=== PATIENT | male | born 1940 | race Caucasian/White ===

== ENCOUNTER 2016-12-24 10:52 | Inpatient (IN) | payer MEDICARE ==
[~2016-12-24] VITALS: Ht 182.9 cm; Wt 104.5 kg
[~2016-12-24 10:52] MED LIST: DIABETA 2.5MG2.5 MG PO; FLOMAX 0.40.4 MG/CAP PO; GLUCOPHAGE1000 MG PO; JANUVIA 100MG100 MG PO; LOPRESSOR 225 MG/TAB PO; LOPRESSOR100 MG PO; PERCOCET 325 MG1 TA2 PO; PHARMASSURE SA160 MG PO; PRINZIDE 25 MG-1 TAB PO; SEPTRA DS 8001 TAB PO; TORADOL10 MG PO; ZOFRAN 4MG T4 MG/TAB PO
[2016-12-24] MEDS ORDERED: FLOMAX 0.40.4 MG/CAP PO (16:00)
[2016-12-24] MEDS ORDERED: ASPIRIN 81M81 MG/TA2 PO (16:01)
[2016-12-24] MEDS ORDERED: LEVEMIR100 U/ML SQ (16:01)
[2016-12-24] MEDS ORDERED: FISH OIL 1000MG1 CAP PO (16:03)
[2016-12-24] MEDS ORDERED: CO Q-1010 M1 PO (16:03)
[2016-12-24] MEDS ORDERED: CHROMIUM PICO200 MC2 (16:03)
[2016-12-24 16:54] LABS: BASO % 0.2 % (0.0-2.0); GRAN # 11.5 (1.4-6.5); GRAN % 87.1 % (42.2-75.2); HEMATOCRIT 47.5 % (42.0-52.0); HEMOGLOBIN 16.3 g/dl (13.5-18.0); LYMPH % 7.3 % (20.0-51.0); MEAN CELL VOLUME 93 fl (80.0-100.0); MEAN CORPUSCULAR HEMOGLOBIN 32 pg (27.0-31.0); MEAN CORPUSCULAR HGB CONC 34 g/dl (33.0-37.0); MEAN PLATELET VOLUME 11.8 fl (7.4-10.4); MONO # 0.6 (0.1-0.6); MONO % 4.2 % (1.7-9.3); PLATELET COUNT 190 K/mm3 (130-400); REDCELL DISTRIBUTION WIDTH-CV 12.6 % (11.5-14.5); WHITE BLOOD COUNT 13.2 K/mm3 (4.8-10.8)
[2016-12-24 17:02] LABS: ADJUSTED CALCIUM 9.3 mg/dL (8.4-10.2); ALANINE AMINOTRANSFERASE 46 U/L (21-72); ALBUMIN 4.2 gm/dL (3.5-5.0); ALKALINE PHOSPHATASE 59 U/L (50-136); ANION GAP 14 mmol/L (7-16); BILIRUBIN,TOTAL 0.9 mg/dL (0.0-1.0); BLOOD UREA NITROGEN 42 mg/dL (9-20); CALCIUM 9.5 mg/dL (8.4-10.2); CARBON DIOXIDE 26 mmol/L (22-30); CHLORIDE 95 mmol/L (98-107); CREATININE, serum 1.08 mg/dL (0.66-1.25); GLUCOSE 237 mg/dL (74-106); POTASSIUM 4.4 mmol/L (3.4-5.0); SODIUM 135 mmol/L (137-145); TOTAL PROTEIN 7.5 gm/dL (6.4-8.2)
[2016-12-24 17:11] LABS: B-TYPE NATRIURETIC PEPTIDE 302 pg/mL (0-450)
[2016-12-24 17:32] VITALS: BP 131/86; PULSE 74; TEMP 98.3
[2016-12-24 17:37] LABS: TROPONIN-I < 0.012 ng/mL (0.000-0.034)
[2016-12-24 18:26] LABS: INFLUENZA B NEGATIVE
[2016-12-24 20:39] VITALS: BP 95/63; PULSE 95; TEMP 98.7
[2016-12-24 23:05] VITALS: BP 98/64; PULSE 92; TEMP 98.6
[2016-12-25] VITALS (11 sets, daily range): BP systolic 94–128; BP diastolic 61–83; PULSE 72–119; TEMP 97.3–973
[2016-12-25 09:25] LABS: HEMATOCRIT 45.3 % (42.0-52.0); HEMOGLOBIN 15.7 g/dl (13.5-18.0); MEAN CELL VOLUME 93 fl (80.0-100.0); MEAN CORPUSCULAR HEMOGLOBIN 32 pg (27.0-31.0); MEAN CORPUSCULAR HGB CONC 35 g/dl (33.0-37.0); MEAN PLATELET VOLUME 11.3 fl (7.4-10.4); PLATELET COUNT 174 K/mm3 (130-400); RED BLOOD COUNT 4.88 M/mm3 (4.20-5.60); REDCELL DISTRIBUTION WIDTH-CV 12.5 % (11.5-14.5); WHITE BLOOD COUNT 11.1 K/mm3 (4.8-10.8)
[2016-12-25 09:34] LABS: ADD PATHOLOGY DIFF REVIEW NO
[2016-12-25 10:06] LABS: INR 1.1 (0.8-3.0); PROTHROMBIN TIME 12.3 SECONDS (9.7-12.8)
[2016-12-25 15:05] LABS: BAND 5 % (0-10); NEUTROPHILS 74 % (42.0-75.2); PLATELET ESTIMATE NORMAL (NORMAL); TOTAL CELLS COUNTED 100
[2016-12-26 01:48] VITALS: BP 111/71; PULSE 79; TEMP 97.7
[2016-12-26 03:30] VITALS: BP 112/79; PULSE 73; TEMP 98.2
[2016-12-26 03:46] LABS: CREATININE, serum 1.06 mg/dL (0.66-1.25); MAGNESIUM 2.2 mg/dL (1.6-2.3); POTASSIUM 4.5 mmol/L (3.4-5.0)
[2016-12-26 08:24] VITALS: BP 106/69; PULSE 94; TEMP 97
[2016-12-26 12:22] VITALS: BP 104/55; PULSE 79; TEMP 98
[2016-12-26 15:50] VITALS: BP 106/60; PULSE 92; TEMP 97.4
[2016-12-26 21:15] VITALS: BP 112/65; PULSE 81; TEMP 98.2
[2016-12-27] VITALS (8 sets, daily range): BP systolic 92–116; BP diastolic 55–75; PULSE 63–109; TEMP 97.1–98.3
[2016-12-27 09:37] LABS: HEMATOCRIT 43.6 % (42.0-52.0); HEMOGLOBIN 14.8 g/dl (13.5-18.0); MEAN CELL VOLUME 94 fl (80.0-100.0); MEAN CORPUSCULAR HEMOGLOBIN 32 pg (27.0-31.0); MEAN CORPUSCULAR HGB CONC 34 g/dl (33.0-37.0); MEAN PLATELET VOLUME 11.2 fl (7.4-10.4); PLATELET COUNT 178 K/mm3 (130-400); RED BLOOD COUNT 4.66 M/mm3 (4.20-5.60); REDCELL DISTRIBUTION WIDTH-CV 12.6 % (11.5-14.5); WHITE BLOOD COUNT 14.3 K/mm3 (4.8-10.8)
[2016-12-27 09:39] LABS: ADD PATHOLOGY DIFF REVIEW NO
[2016-12-27 10:51] LABS: BAND 3 % (0-10); NEUTROPHILS 79 % (42.0-75.2); TOTAL CELLS COUNTED 100
[2016-12-28 04:24] VITALS: BP 111/69; PULSE 87; TEMP 98
[2016-12-28 07:42] VITALS: BP 120/79; PULSE 76; TEMP 97.3
[2016-12-28 09:27] LABS: HEMATOCRIT 43.9 % (42.0-52.0); HEMOGLOBIN 14.8 g/dl (13.5-18.0); MEAN CELL VOLUME 94 fl (80.0-100.0); MEAN CORPUSCULAR HEMOGLOBIN 32 pg (27.0-31.0); MEAN CORPUSCULAR HGB CONC 34 g/dl (33.0-37.0); PLATELET COUNT 180 K/mm3 (130-400); RED BLOOD COUNT 4.65 M/mm3 (4.20-5.60); REDCELL DISTRIBUTION WIDTH-CV 12.4 % (11.5-14.5); WHITE BLOOD COUNT 10.8 K/mm3 (4.8-10.8)
[2016-12-28] MEDS ORDERED: PREDNISONE20 MG PO (09:27)
[2016-12-28 09:32] LABS: ADD PATHOLOGY DIFF REVIEW NO
[2016-12-28 09:52] LABS: BAND 3 % (0-10); NEUTROPHILS 54 % (42.0-75.2); PLATELET ESTIMATE NORMAL (NORMAL); TOTAL CELLS COUNTED 100
[2016-12-28 11:42] VITALS: BP 115/67; PULSE 72; TEMP 97.3
[2016-12-28] MEDS ORDERED: LEVAQUIN 750MG750 M1 PO (14:43)
[2016-12-28] MEDS ORDERED: PROAIR HFA0.09 MG/AC IH (14:45)
== END 2016-12-28 15:39 | disposition home or self-care (01) | DRG 193 ==
LOC: SURG 10:52 → MEDICAL 15:27
PROVIDERS: Internal Medicine; Internal Medicine Pulmonary Disease; Nurse Practitioner Family
PROC: 0B958ZX Drainage of Right Middle Lobe Bronchus, Via Natural or Artificial Opening Endoscopic, Diagnostic (ICD-10-PCS; 2016-12-25)
PROC: 0B968ZX Drainage of Right Lower Lobe Bronchus, Via Natural or Artificial Opening Endoscopic, Diagnostic (ICD-10-PCS; 2016-12-25)
PROC: 0B988ZX Drainage of Left Upper Lobe Bronchus, Via Natural or Artificial Opening Endoscopic, Diagnostic (ICD-10-PCS; 2016-12-25)
PROC: 0B9B8ZX Drainage of Left Lower Lobe Bronchus, Via Natural or Artificial Opening Endoscopic, Diagnostic (ICD-10-PCS; 2016-12-25)
PROC: 0B948ZX Drainage of Right Upper Lobe Bronchus, Via Natural or Artificial Opening Endoscopic, Diagnostic (ICD-10-PCS; principal; 2016-12-25 12:15)
DX: J12.3 Human metapneumovirus pneumonia (principal); J96.01 Acute respiratory failure with hypoxia; J15.9 Unspecified bacterial pneumonia; I10 Essential (primary) hypertension; E11.42 Type 2 diabetes mellitus with diabetic polyneuropathy
CPT/HCPCS: 99222-AI; 99232-AI; 99239; J1815; J1956; J2704; J7030; J7120; J7512

== ENCOUNTER → 2017-01-01 | Outpatient (REF) ==
[~2017-01-01] MED LIST changes: +ASPIRIN 81M81 MG/TA2 PO; +CARDENE 20MG CA20 M1 PO; +CHROMIUM PICO200 MC2; +CO Q-1010 M1 PO; +FISH OIL 1000MG1 CAP PO; +LANTUS100 U/ML SQ; +LEVAQUIN 750MG750 M1 PO; +LEVEMIR100 U/ML SQ; +LIPITOR 80MG80 MG PO; +PLAVIX 75MG TAB75 MG PO; +PREDNISONE20 MG PO; +PROAIR HFA0.09 MG/AC IH; +TOPROL XL 25MG25 MG PO
== END ==
LOC: ZLAB.WCH 15:14
DX: Z01.89 Encounter for other specified special examinations (principal)

== ENCOUNTER → 2017-01-28 | Outpatient (CLI) | payer MEDICARE | LOC: COL.PUL 11:20 | DX: G47.34 Idiopathic sleep related nonobstructive alveolar hypoventilation (principal) ==

== ENCOUNTER 2017-03-01 12:02 | Day surgery (SDC) | payer MEDICARE ==
[~2017-03-01] VITALS: Ht 182.9 cm; Wt 108.0 kg
[2017-03-01] VITALS (434 sets, daily range): BP systolic 100–135; BP diastolic 51–108; PULSE 54–73; TEMP 97.6–98; O2SAT 89–97
[~2017-03-01 12:02] MED LIST changes: -CARDENE 20MG CA20 M1 PO; -LANTUS100 U/ML SQ; -LIPITOR 80MG80 MG PO; -PLAVIX 75MG TAB75 MG PO; -TOPROL XL 25MG25 MG PO
[2017-03-01 13:01] LABS: INR 1.1 (0.8-3.0); PROTHROMBIN TIME 11.8 SECONDS (9.7-12.8)
[2017-03-01 13:11] LABS: HEMATOCRIT 43.5 % (42.0-52.0); HEMOGLOBIN 14.9 g/dl (13.5-18.0); MEAN CELL VOLUME 95 fl (80.0-100.0); MEAN CORPUSCULAR HEMOGLOBIN 32 pg (27.0-31.0); MEAN CORPUSCULAR HGB CONC 34 g/dl (33.0-37.0); MEAN PLATELET VOLUME 10.8 fl (7.4-10.4); PLATELET COUNT 183 K/mm3 (130-400); REDCELL DISTRIBUTION WIDTH-CV 12.7 % (11.5-14.5)
[2017-03-01] MEDS ORDERED: PROAIR HFA0.09 MG/AC IH (13:19)
[2017-03-01] MEDS ORDERED: LANTUS100 U/ML SQ (13:21)
[2017-03-01 13:22] LABS: CREATININE, serum 0.86 mg/dL (0.66-1.25); POTASSIUM 4.3 mmol/L (3.4-5.0)
[2017-03-01] MEDS ORDERED: TOPROL XL 25MG25 MG PO (13:25)
[2017-03-01] MEDS ORDERED: PLAVIX 75MG TAB75 MG PO (13:26)
[2017-03-02] VITALS (481 sets, daily range): BP systolic 93–123; BP diastolic 47–85; PULSE 60–87; TEMP 97.6–98.1; O2SAT 89–97
[2017-03-02 07:00] LABS: BASO # 0.1 (0.0-0.2); BASO % 1.3 % (0.0-2.0); EOS # 0.3 (0.0-0.7); EOS % 3.9 % (0-4.0); GRAN # 4.1 (1.4-6.5); GRAN % 65.3 % (42.2-75.2); HEMOGLOBIN 14.7 g/dl (13.5-18.0); LYMPH # 1.1 (1.2-3.4); LYMPH % 17.5 % (20.0-51.0); MEAN CELL VOLUME 95 fl (80.0-100.0); MEAN CORPUSCULAR HEMOGLOBIN 32 pg (27.0-31.0); MEAN CORPUSCULAR HGB CONC 33 g/dl (33.0-37.0); MEAN PLATELET VOLUME 11.2 fl (7.4-10.4); MONO # 0.7 (0.1-0.6); MONO % 10.3 % (1.7-9.3); PLATELET COUNT 183 K/mm3 (130-400); RED BLOOD COUNT 4.64 M/mm3 (4.20-5.60); REDCELL DISTRIBUTION WIDTH-CV 12.9 % (11.5-14.5); WHITE BLOOD COUNT 6.3 K/mm3 (4.8-10.8)
[2017-03-02 07:07] LABS: CALCIUM 8.7 mg/dL (8.4-10.2); CREATININE, serum 0.93 mg/dL (0.66-1.25)
[2017-03-02 12:46] LABS: ADD PATHOLOGY DIFF REVIEW NO
[2017-03-02 12:50] LABS: BAND 13 % (0-10); EOSINOPHIL 2 % (0-4); NEUTROPHILS 64 % (42.0-75.2); PLATELET ESTIMATE NORMAL (NORMAL); TOTAL CELLS COUNTED 100
[2017-03-02] MEDS ORDERED: CARDENE 20MG CA20 M1 PO (15:04)
== END 2017-03-02 15:35 | disposition home or self-care (01) ==
LOC: COL.RAD 12:02 → IMCU 14:49 → COL.RAD 03-02 15:35
PROVIDERS: Internal Medicine Interventional Cardiology
DX: I25.10 Atherosclerotic heart disease of native coronary artery without angina pectoris (principal); R07.89 Other chest pain; R94.39 Abnormal result of other cardiovascular function study; R00.1 Bradycardia, unspecified; J84.10 Pulmonary fibrosis, unspecified; E11.9 Type 2 diabetes mellitus without complications; Z79.4 Long term (current) use of insulin; I10 Essential (primary) hypertension; E78.00 Pure hypercholesterolemia, unspecified
CPT/HCPCS: OP; C1725; C1760; C1769; C1876; J0583; J1815; J2250; J3010; Q9967

== ENCOUNTER 2017-04-18 16:17 | Inpatient (IN) | payer MEDICARE ==
[~2017-04-18] VITALS: Wt 104.7 kg
[~2017-04-18 16:17] MED LIST changes: +CARDENE 20MG CA20 M1 PO; +LANTUS100 U/ML SQ; +PLAVIX 75MG TAB75 MG PO; +TOPROL XL 25MG25 MG PO
[2017-04-18 16:39] LABS: BASO # 0.1 (0.0-0.2); EOS % 0.5 % (0-4.0); GRAN % 81.4 % (42.2-75.2); HEMATOCRIT 42.5 % (42.0-52.0); HEMOGLOBIN 14.5 g/dl (13.5-18.0); LYMPH # 0.9 (1.2-3.4); LYMPH % 12.3 % (20.0-51.0); MEAN CELL VOLUME 93 fl (80.0-100.0); MEAN CORPUSCULAR HEMOGLOBIN 32 pg (27.0-31.0); MEAN CORPUSCULAR HGB CONC 34 g/dl (33.0-37.0); MEAN PLATELET VOLUME 12.3 fl (7.4-10.4); MONO # 0.3 (0.1-0.6); MONO % 3.8 % (1.7-9.3); PLATELET COUNT 163 K/mm3 (130-400); RED BLOOD COUNT 4.56 M/mm3 (4.20-5.60); REDCELL DISTRIBUTION WIDTH-CV 12.7 % (11.5-14.5); WHITE BLOOD COUNT 7.3 K/mm3 (4.8-10.8)
[2017-04-18 17:06] LABS: INR 1.1 (0.8-3.0); PROTHROMBIN TIME 12.4 SECONDS (9.7-12.8)
[2017-04-18 17:14] LABS: ALANINE AMINOTRANSFERASE 34 U/L (21-72); ALBUMIN 3.9 gm/dL (3.5-5.0); ALKALINE PHOSPHATASE 47 U/L (50-136); ANION GAP 11 mmol/L (7-16); BLOOD UREA NITROGEN 23 mg/dL (9-20); CALCIUM 8.9 mg/dL (8.4-10.2); CARBON DIOXIDE 24 mmol/L (22-30); CHLORIDE 101 mmol/L (98-107); CREATININE, serum 1.03 mg/dL (0.66-1.25); GLUCOSE 173 mg/dL (74-106); MAGNESIUM 1.6 mg/dL (1.6-2.3); PHOSPHOROUS 4.5 mg/dL (2.5-4.5); POTASSIUM 4.4 mmol/L (3.4-5.0); SODIUM 137 mmol/L (137-145); TOTAL PROTEIN 6.5 gm/dL (6.4-8.2)
[2017-04-18 17:24] LABS: B-TYPE NATRIURETIC PEPTIDE 331 pg/mL (0-450); TROPONIN-I < 0.012 ng/mL (0.000-0.034)
[2017-04-18] MEDS ORDERED: LIPITOR 80MG80 MG PO (18:38)
[2017-04-18 21:13] VITALS: BP 130/75; PULSE 87; TEMP 98.7
[2017-04-18 23:01] VITALS: BP 116/72; PULSE 68; TEMP 97.4
[2017-04-19 02:46] VITALS: BP 133/83; PULSE 58; TEMP 98.7
[2017-04-19 08:29] VITALS: BP 104/60; PULSE 51; TEMP 98.4
[2017-04-19 11:39] VITALS: BP 110/68; PULSE 62; TEMP 98.1
[2017-04-19 16:04] LABS: PH 6 (5-8); SQUAMOUS EPITHELIAL None Seen /hpf; URINE APPEARANCE Clear; URINE BACTERIA None Seen /hpf; URINE BILIRUBIN Negative (NEGATIVE); URINE BLOOD Negative (NEGATIVE); URINE COLOR Yellow; URINE GLUCOSE Negative (NEGATIVE); URINE KETONE Negative (NEGATIVE); URINE UROBILINOGEN Negative (NEGATIVE); URINE WBC 0-2 /hpf
[2017-04-19 16:20] VITALS: BP 101/63; PULSE 56; TEMP 98.1
[2017-04-19 19:20] VITALS: BP 134/61; PULSE 70; TEMP 98.6
[2017-04-19 23:15] VITALS: BP 110/72; PULSE 96; TEMP 98.5
[2017-04-20 03:10] VITALS: BP 117/62; PULSE 55; TEMP 97.8
[2017-04-20 08:18] VITALS: BP 105/67; PULSE 55; TEMP 98.2
[2017-04-20] MEDS ORDERED: CARDENE 20MG CA20 M1 PO (10:19)
[2017-04-20 11:30] VITALS: BP 85/56; PULSE 58; TEMP 98.3
[2017-04-20 11:54] VITALS: BP 96/48
== END 2017-04-20 15:00 | disposition home or self-care (01) | DRG 312 ==
LOC: COL.ER 16:17 → MEDICAL 18:23
PROVIDERS: Emergency Medicine; Family Medicine
DX: R55 Syncope and collapse (principal); I95.9 Hypotension, unspecified; I10 Essential (primary) hypertension; I25.10 Atherosclerotic heart disease of native coronary artery without angina pectoris; E11.42 Type 2 diabetes mellitus with diabetic polyneuropathy; Z95.5 Presence of coronary angioplasty implant and graft; Z79.4 Long term (current) use of insulin; Z86.73 Personal history of transient ischemic attack (TIA), and cerebral infarction without residual deficits; G47.33 Obstructive sleep apnea (adult) (pediatric); M50.31 Other cervical disc degeneration, high cervical region
CPT/HCPCS: 99223-AI; 99232-AI; 99239; A9585; J1650; J1815; J7030

== ENCOUNTER → 2017-06-16 | Outpatient (REF) ==
[~2017-06-16] MED LIST changes: +LIPITOR 80MG80 MG PO
== END ==
LOC: ZLAB.WCH 19:08
DX: Z01.89 Encounter for other specified special examinations (principal)

== ENCOUNTER → 2017-11-22 | Outpatient (REF) | LOC: ZLAB.WCH 18:33 | DX: Z01.89 Encounter for other specified special examinations (principal) ==

== ENCOUNTER → 2018-02-25 | Outpatient (REF) | LOC: ZLAB.WCH 15:48 | DX: Z01.89 Encounter for other specified special examinations (principal) ==

== ENCOUNTER → 2018-06-20 | Outpatient (REF) | LOC: ZLAB.WCH 16:09 | DX: Z01.89 Encounter for other specified special examinations (principal) ==

== ENCOUNTER → 2018-10-21 | Outpatient (REF) | LOC: ZLAB.WCH 14:20 | DX: Z01.89 Encounter for other specified special examinations (principal) ==

== ENCOUNTER → 2019-02-01 | Outpatient (REF) | LOC: ZLAB.WCH 17:33 | DX: Z01.89 Encounter for other specified special examinations (principal) ==

== ENCOUNTER → 2019-03-13 | Outpatient (CLI) | payer MEDICARE ==
[2019-03-13 10:43] LABS: CREATININE, serum 0.87 (0.66-1.25)
== END ==
LOC: COL.RAD 10:04
PROVIDERS: Family Medicine
DX: E11.40 Type 2 diabetes mellitus with diabetic neuropathy, unspecified (principal); I73.9 Peripheral vascular disease, unspecified; I25.84 Coronary atherosclerosis due to calcified coronary lesion; Z86.69 Personal history of other diseases of the nervous system and sense organs; Z96.653 Presence of artificial knee joint, bilateral
CPT/HCPCS: Q9967

== ENCOUNTER 2019-11-17 16:33 | Emergency (ER) | payer MEDICARE ==
[~2019-11-17] VITALS: Ht 182.9 cm; Wt 97.7 kg
[2019-11-17 16:46] VITALS: TEMP 96.7
[2019-11-17] MEDS ORDERED: CEPHALEXIN500 M1 PO (18:12)
[2019-11-17 18:34] VITALS: BP 127/79; PULSE 56
== END 2019-11-17 18:36 | disposition home or self-care (01) ==
LOC: COL.ER 16:33
DX: R04.0 Epistaxis (principal); Z79.01 Long term (current) use of anticoagulants; Z79.02 Long term (current) use of antithrombotics/antiplatelets; Z79.82 Long term (current) use of aspirin; Z79.84 Long term (current) use of oral hypoglycemic drugs

== ENCOUNTER 2020-07-11 12:33 | Day surgery (SDC) | payer MEDICARE ==
[2020-07-11] VITALS (9 sets, daily range): BP systolic 100–124; BP diastolic 65–92; PULSE 16–69; TEMP 97.6
[~2020-07-11] VITALS: Ht 182.9 cm; Wt 101.3 kg
[~2020-07-11 12:33] MED LIST changes: +CEPHALEXIN500 M1 PO
[2020-07-11 13:40] LABS: HEMATOCRIT 42.5 % (42.0-52.0); HEMOGLOBIN 14.2 g/dl (13.5-18.0); MEAN CELL VOLUME 94 fl (80.0-100.0); MEAN CORPUSCULAR HEMOGLOBIN 32 pg (27.0-31.0); MEAN CORPUSCULAR HGB CONC 33 g/dl (33.0-37.0); PLATELET COUNT 168 K/mm3 (130-400); REDCELL DISTRIBUTION WIDTH-CV 13.4 % (11.5-14.5)
[2020-07-11 13:45] LABS: INR 1.3 (0.8-3.0); PROTHROMBIN TIME 14.3 SECONDS (9.7-12.8)
[2020-07-11 13:47] LABS: CALCIUM 9.1 mg/dL (8.4-10.2); CREATININE, serum 0.91 (0.66-1.25); POTASSIUM 4.2 mmol/L (3.4-5.0)
[2020-07-11] MEDS ORDERED: TOPROL XL 50MG50 MG PO (13:55)
[2020-07-11] MEDS ORDERED: ZESTRIL 5MG5 MG PO (13:56)
[2020-07-11] MEDS ORDERED: NEURONTIN300 MG/CAP PO (13:56)
[2020-07-11] MEDS ORDERED: IMDUR 30MG30 MG/TAB PO (13:56)
[2020-07-11] MEDS ORDERED: TRULICITY0.75 MG/0. SQ (14:12)
[2020-07-11] MEDS ORDERED: METAMUCIL MUL0.52 GM PO (14:13)
--- NOTE | 2020-07-11 15:07 | NUR ---
SEE MERGE FOR ALL MEDICATION ADMINISTRATION TIMES, INTRA AND POST SEDATION ASSESSMENT
--- NOTE | 2020-07-11 18:20 | NUR ---
Right Tband deflated and pressure dressing applied. INT discontinued intact.
--- NOTE | 2020-07-11 18:47 | NUR ---
Discharge instructions given.
--- NOTE | 2020-07-11 19:20 | NUR ---
Pt has waited over an hour for discharge paperwork from Dr. Rodrigez. Pt is not happy and wants to go home. Transferred to private car by
== END 2020-07-11 19:40 | disposition home or self-care (01) ==
LOC: COL.CAR
PROVIDERS: Internal Medicine Interventional Cardiology
DX: I25.10 Atherosclerotic heart disease of native coronary artery without angina pectoris (principal); I48.0 Paroxysmal atrial fibrillation; I11.0 Hypertensive heart disease with heart failure; I50.32 Chronic diastolic (congestive) heart failure; E11.9 Type 2 diabetes mellitus without complications; E78.00 Pure hypercholesterolemia, unspecified; Z79.82 Long term (current) use of aspirin; Z79.4 Long term (current) use of insulin; Z79.01 Long term (current) use of anticoagulants; Z79.02 Long term (current) use of antithrombotics/antiplatelets
CPT/HCPCS: J1644; J2250; J3010

== ENCOUNTER → 2021-05-30 | Outpatient (CLI) | payer MEDICARE ==
[~2021-05-30] MED LIST changes: +ALBUTEROL0.83 MG/ML IH; +COUMADIN 5MG5 MG/TAB PO; +IMDUR 30MG30 MG/TAB PO; +METAMUCIL MUL0.52 GM PO; +NEURONTIN300 MG/CAP PO; +OMNICEF 300MG300 MG PO; +TOPROL XL 50MG50 MG PO; +TRULICITY0.75 MG/0. SQ; +ZESTRIL 5MG5 MG PO
== END ==
LOC: COL.RAD 09:55
DX: K80.80 Other cholelithiasis without obstruction (principal); K82.8 Other specified diseases of gallbladder
CPT/HCPCS: A9537

== ENCOUNTER 2021-06-13 07:56 | Day surgery (SDC) | payer MEDICARE ==
[2021-06-13] VITALS (8 sets, daily range): BP systolic 95–111; BP diastolic 60–75; PULSE 54–66; TEMP 96.9–97.8
[~2021-06-13] VITALS: Ht 182.9 cm; Wt 103.3 kg
[~2021-06-13 07:56] MED LIST changes: -ALBUTEROL0.83 MG/ML IH; -COUMADIN 5MG5 MG/TAB PO; -OMNICEF 300MG300 MG PO
[2021-06-13] MEDS ORDERED: ALBUTEROL0.83 MG/ML IH (08:44)
[2021-06-13] MEDS ORDERED: OMNICEF 300MG300 MG PO (08:45)
[2021-06-13] MEDS ORDERED: CARDENE 20MG CA20 M1 PO (08:45)
[2021-06-13] MEDS ORDERED: COUMADIN 5MG5 MG/TAB PO (08:46)
--- NOTE | 2021-06-13 10:50 | NUR ---
Patient arrives to [facility] [place] [facility] for post-op recovery. Monitoring is applied - VSS on 2 L oxygen per nasal cannula. He is alert and oriented. PIV to TKO. He is offered and receives water to drink. Cardiology consult was called by Dr. Burleson; Dr. Rodrigez to come see patient. He denies pain or nausea. Call light is within reach.
--- NOTE | 2021-06-13 11:15 | NUR ---
Patient is resting comfortably. He is drinking water and eating jello. Tolerating well.
--- NOTE | 2021-06-13 11:15 | NUR ---
DEV Pollack with Dr. Rodrigez comes to see the patient at the bedside. While reviewing his chart, the patient's pulse rate is ranging from 30-65 on the bedside monitor. He is placed on a 3 lead heart monitor for more accurate assessment. He is in a-fib with PVCs, rate predominately in the 50s on ECG monitoring. DEV Pollack assesses the patient and his monitors, and does not give any further orders. The patient remains alert. He denies needs. Cardiology will return to re-assess and give approval for patient discharge.
--- NOTE | 2021-06-13 12:00 | NUR ---
Patient ambulates to the restroom, voids, and returns to room. Urine is bloody. He voids a large amount. VSS on room air. Heart rhythm remains a-fib rate 50s.
--- NOTE | 2021-06-13 12:30 | NUR ---
Cardiology CIRCUIT BOARD INSPECTOR gives order that patient is OK to discharge to home.
--- NOTE | 2021-06-13 12:45 | NUR ---
Patient ambulates with steady gait to the restroom, voids, and returns to room.
--- NOTE | 2021-06-13 13:05 | NUR ---
Patient has met discharge criteria. Discharge instructions are discussed. He denies any questions and verbalizes understanding. He is to follow-up with cardiology as scheduled for next week. Urology will call for follow-up appointment. Instructions are also given to his daughter. PIV is removed with catheter intact and hemostasis achieved. He changes to his clothing independently. He is escorted to the exit via wheelchair by staff. He is discharged to the care of his daughter, who drives him home in a private vehicle, at 1305.
== END 2021-06-13 13:05 | disposition home or self-care (01) ==
LOC: SDCO 07:56
DX: N20.2 Calculus of kidney with calculus of ureter (principal); I48.91 Unspecified atrial fibrillation; I11.0 Hypertensive heart disease with heart failure; I50.9 Heart failure, unspecified; I08.1 Rheumatic disorders of both mitral and tricuspid valves; G47.33 Obstructive sleep apnea (adult) (pediatric); E11.42 Type 2 diabetes mellitus with diabetic polyneuropathy; J40 Bronchitis, not specified as acute or chronic; Z79.4 Long term (current) use of insulin; Z20.822 Contact with and (suspected) exposure to COVID-19; Z79.899 Other long term (current) drug therapy; Z79.82 Long term (current) use of aspirin; Z86.73 Personal history of transient ischemic attack (TIA), and cerebral infarction without residual deficits; Z79.02 Long term (current) use of antithrombotics/antiplatelets; Z79.01 Long term (current) use of anticoagulants; Z95.828 Presence of other vascular implants and grafts; I25.10 Atherosclerotic heart disease of native coronary artery without angina pectoris; E11.40 Type 2 diabetes mellitus with diabetic neuropathy, unspecified; Z95.818 Presence of other cardiac implants and grafts
CPT/HCPCS: C1769; C2617; J0690; J2405; J2704; J3010; J7030; Q9967

== ENCOUNTER → 2021-08-27 | Outpatient (CLI) | payer MEDICARE ==
[~2021-08-27] MED LIST changes: +ALBUTEROL0.83 MG/ML IH; +COUMADIN 5MG5 MG/TAB PO; +OMNICEF 300MG300 MG PO
[2021-08-27 17:32] LABS: C-REACTIVE PROTEIN < 0.02 mg/dL (0.00-0.50)
[2021-08-27 17:38] LABS: TROPONIN-I < 0.010 ng/mL (0.00-0.033)
== END ==
LOC: ZCOL.LAB 17:02
PROVIDERS: Nurse Practitioner
DX: I95.9 Hypotension, unspecified (principal)

== ENCOUNTER 2022-01-24 00:13 | Emergency (ER) | payer MEDICARE ==
[~2022-01-24] VITALS: Ht 182.9 cm; Wt 100.0 kg
[2022-01-24 00:18] VITALS: TEMP 98.5
[2022-01-24 00:49] LABS: COLLECTION METHOD CATHETER
[2022-01-24 00:59] LABS: PH 6 (5-8); SQUAMOUS EPITHELIAL None Seen /hpf (0-10); URINE APPEARANCE Hazy (CLEAR/HAZY); URINE BACTERIA None Seen /hpf (NONE SEEN); URINE BILIRUBIN Negative (NEGATIVE); URINE BLOOD 2+ (NEGATIVE); URINE CALCIUM OXALATE CRYSTAL Present (NOT PRESENT); URINE COLOR Amber (YELLOW); URINE GLUCOSE 1+ (NEGATIVE); URINE KETONE Negative (NEGATIVE); URINE LEUKOCYTE ESTERASE Negative (NEGATIVE); URINE NITRATE Negative (NEGATIVE); URINE PROTEIN(semi-quant) 2+ (NEGATIVE); URINE RBC >50 /hpf (0-2); URINE UROBILINOGEN Negative (NEGATIVE)
[2022-01-24 01:08] LABS: INR 1.2 (0.8-3.0); PROTHROMBIN TIME 13.7 SECONDS (9.7-12.8)
[2022-01-24 01:29] VITALS: BP 107/76; PULSE 89
[2022-01-24] MEDS ORDERED: ISOPTIN SR120 MG PO (10:13)
[2022-01-24] MEDS ORDERED: PYRIDIUM 100MG100 MG PO (10:13)
[2022-01-24] MEDS ORDERED: COUMADIN 77.5 MG/TAB PO (10:14)
[2022-01-25] MEDS ORDERED: GLUCOPHAGE500 MG/TAB PO (09:18)
== END 2022-01-24 01:29 | disposition home or self-care (01) ==
LOC: COL.ER 00:13
PROVIDERS: Emergency Medicine
DX: R33.9 Retention of urine, unspecified (principal); R31.9 Hematuria, unspecified; R10.30 Lower abdominal pain, unspecified

== ENCOUNTER 2023-01-25 13:57 | Inpatient (IN) | payer MEDICARE ==
[~2023-01-25] VITALS: Ht 365.8 cm; Wt 102.0 kg
[~2023-01-25 13:57] MED LIST changes: +COUMADIN 77.5 MG/TAB PO; +ENTRESTO 97 MG1 EACH PO; +FARXIGA10 PO; +GLUCOPHAGE500 MG/TAB PO; +ISOPTIN SR120 MG PO; +PYRIDIUM 100MG100 MG PO
[2023-01-26 09:58] VITALS: BP 92/63; PULSE 78; TEMP 97.7
--- NOTE | 2023-01-26 10:15 | NUR ---
PT IS A DIRECT ADMIT TO [facility] FOR TIKOSYN INITIATION. PT ORIENTED TO ROOM AND FLOOR. TELE PLACED. KOFI MÉNDEZ NOTIFIED OF ARRIVAL. RT CALLED FOR EKG.
[2023-01-26] MEDS ORDERED: PACERONE200 MG PO (10:23)
[2023-01-26] MEDS ORDERED: IMDUR 60MG60 MG/TAB PO (10:23)
[2023-01-26] MEDS ORDERED: CARDENE 20MG CA20 M1 PO (10:24)
[2023-01-26] MEDS ORDERED: COUMADIN 5MG5 MG/TAB PO (10:24)
[2023-01-26] MEDS ORDERED: ALDACTONE 25MG25 M1 PO (10:24)
[2023-01-26 10:53] LABS: CALCIUM 8.6 mg/dL (8.4-10.2); CREATININE, serum 1.35 mg/dL (0.72-1.25); POTASSIUM 4.6 mmol/L (3.5-4.5)
[2023-01-26 11:10] LABS: MAGNESIUM 1.8 mg/dL (1.6-2.6)
[2023-01-26 12:40] VITALS: BP 102/69; PULSE 72; TEMP 97.8
--- NOTE | 2023-01-26 14:04 | NUR ---
RN CALLED ABOUT QTC OF 501.
--- NOTE | 2023-01-26 14:07 | NUR ---
Post tikosyn ekg completed. EKG reading states ST depression and qtc of 501. Landen MÉNDEZ notified and pics sent. Awaiting orders.
--- NOTE | 2023-01-26 14:42 | NUR ---
PACEMAKER INTERROGATED PER KOFI MÉNDEZ REQUEST. REPORT PLACED ON CHART. DAVID WITH [employer] CALLED AND NOTIFIED AND ASKED TO CALL KOFI MÉNDEZ WITH REPORT.
[2023-01-26 15:56] VITALS: BP 95/65; PULSE 71; TEMP 98
[2023-01-26 19:27] VITALS: BP 107/75; PULSE 74; TEMP 97.8
--- NOTE | 2023-01-26 20:55 | NUR ---
Initial shift assessment done- denies pain, Up in room on own- gait steady, denies CP or SOB/palpitations- Tele on-paced. Will get his Tokosyn now with EKG again at 2300 tonight-- Pt aware. Did give snack at this time.
[2023-01-26 23:26] VITALS: BP 105/66; PULSE 70; TEMP 98
[2023-01-27] VITALS (8 sets, daily range): BP systolic 85–109; BP diastolic 53–67; PULSE 54–74; TEMP 97.1–98
--- NOTE | 2023-01-27 05:25 | NUR ---
Quiet night- no CP/SOB, has been sleeping most of the night- Tele on,A paced. VSS.
--- NOTE | 2023-01-27 06:45 | NUR ---
awake resting in bed, bedside shift repeort received from LORI Weiner
[2023-01-27 06:50] LABS: CALCIUM 8.4 mg/dL (8.4-10.2); CREATININE, serum 1.2 mg/dL (0.72-1.25); MAGNESIUM 1.7 mg/dL (1.6-2.6); POTASSIUM 4.7 mmol/L (3.5-4.5)
--- NOTE | 2023-01-27 08:15 | NUR ---
had breakfast and tolerated well, full assessment completed, see interventions for further info, denies needs at this time
--- NOTE | 2023-01-27 09:34 | NUR ---
Initial visit; Patient thanked Pathology Teacher for looking in on him and offering prayer and God's blessings. Pathology Teacher will follow up while patient is hospitalized.
--- NOTE | 2023-01-27 10:00 | NUR ---
physical therapy was in and worked with patient, sitting up in recliner at this time, denies needs
--- NOTE | 2023-01-27 11:29 | NUR ---
remains sitting up in chair, dozing at intervals
--- NOTE | 2023-01-27 12:30 | NUR ---
remains sitting up in chair, eyes closed
--- NOTE | 2023-01-27 13:31 | NUR ---
bedside shift report given to LORI Bird
--- NOTE | 2023-01-27 14:20 | NUR ---
Report received from LORI Chaudhari. Pt sitting up in the recliner. Denies pain/discomfort, chest pain, shortness of breath. Denies other needs. Call light is in his reach.
--- NOTE | 2023-01-27 14:48 | NUR ---
SW met with the patient to discuss discharge plan. The patient lives alone in [place]. He reports independence with ADLs and has a cane and walker available, if needed. The patient's PCP is Dr. Pavel Servin and he receives his medications from [facility]. The patient's DPOA-HC is in EMR and it designates his daughter, Joyce (ph#[phone]). Joyce lives in [place]. The patient plans to return home upon discharge. No additional needs at this time. *Discharge plan: home*
[2023-01-28 03:36] VITALS: BP 96/65; PULSE 69; TEMP 98.6
[2023-01-28 07:13] LABS: INR 2.8 (0.8-3.0); PROTHROMBIN TIME 32.2 SECONDS (9.7-12.8)
[2023-01-28 07:26] LABS: CALCIUM 8.2 mg/dL (8.4-10.2); CREATININE, serum 1.24 mg/dL (0.72-1.25); MAGNESIUM 1.8 mg/dL (1.6-2.6)
[2023-01-28 07:48] LABS: POTASSIUM 4.6 mmol/L (3.5-4.5)
[2023-01-28 08:00] VITALS: BP 110/47; BP 99/60; PULSE 76; PULSE 77; TEMP 98.3
--- NOTE | 2023-01-28 09:54 | NUR ---
0920 Pt awake in recliner, tolerated breakfast. Pt verbalizes want for a shower depending on when he will d/c. Pt has no pain or other complaints at this time.
--- NOTE | 2023-01-28 09:56 | NUR ---
0940 Pt had soft BPs throughout the night and BP of 99/60 at 0800. DEV Schuster notified and advised to hold Cardene but okay to administer Toprol XL and Aldactone.
[2023-01-28] MEDS ORDERED: CARDENE 20MG CA20 M1 PO (09:57)
--- NOTE | 2023-01-28 11:30 | NUR ---
Discharge notes on medications and appointsments given by LORI La and family friend at bedside. Pt verbalized understanding and escorted out by DARNELL Sheldon.
== END 2023-01-28 11:30 | disposition home or self-care (01) | DRG 310 ==
LOC: MEDICAL 01-26 09:47
PROVIDERS: ADMIT Internal Medicine Interventional Cardiology
DX: I48.0 Paroxysmal atrial fibrillation (principal); I45.81 Long QT syndrome; I50.9 Heart failure, unspecified; Z23 Encounter for immunization

== ENCOUNTER 2024-08-24 10:08 | Day surgery (SDC) | payer MEDICARE ==
[~2024-08-24] VITALS: Ht 180.3 cm; Wt 103.1 kg
[2024-08-24 09:53] VITALS: BP 117/76; PULSE 69; TEMP 97.4
[~2024-08-24 10:08] MED LIST changes: +ALDACTONE 25MG25 M1 PO; +IMDUR 60MG60 MG/TAB PO; +LR 1,000 ML IV SCH; +Ondansetron 4 MG/2 ML VIAL IV PRN; +PACERONE200 MG PO
[2024-08-24] MEDS ORDERED: ACTOS30 MG PO (10:20)
[2024-08-24] MEDS ORDERED: ENTRESTO 49 MG1 EACH PO (10:21)
[2024-08-24] MEDS ORDERED: LIPITOR 80MG80 MG PO (10:22)
[2024-08-24] MEDS ORDERED: FLOMAX 0.40.4 MG/CAP PO (10:23)
[2024-08-24] MEDS ORDERED: COUMADIN 5MG5 MG/TAB PO (10:24)
[2024-08-24] MEDS ORDERED: COUMADIN 77.5 MG/TAB PO (10:24)
[2024-08-24] MEDS ORDERED: Lidocaine PF 2% (20 MG/ML) 5 ML VIAL ONE (10:48)
[2024-08-24] MEDS ORDERED: fentaNYL 50 MCG/ML 2 ML VIAL ONE (10:49)
[2024-08-24 11:30] VITALS: BP 87/61; PULSE 72; TEMP 97.3
[2024-08-24 11:45] VITALS: BP 90/69; PULSE 70
[2024-08-24 12:00] VITALS: BP 113/77; PULSE 70
--- NOTE | 2024-08-24 12:15 | NUR ---
1130 RETURNS TO ROOM 5 PER CART. AWAKE, ALERT. RESP UNLABORED. AMBULATES TO RECLINER WITH STANDBY ASSIST. DENIES NAUSEA OR ABD PAIN. VITAL SIGNS OBTAINED. DR. KIMBLE HERE TO VISIT WITH PATIENT. CALL LIGHT AT SIDE 1145 TOLERATES PO JUICE AND PUDDING WITHOUT NAUSEA 1155 DISCHARGE INSTRUCTIONS REVIEWED. PATIENT VERBALIZES UNDERSTANDING. COPY PROVIDED IN DISCHARGE FOLDER 1203 DRESSES SELF
== END 2024-08-24 12:15 | disposition home or self-care (01) ==
LOC: SDCO 10:08
DX: D12.0 Benign neoplasm of cecum (principal); D12.3 Benign neoplasm of transverse colon; K57.30 Diverticulosis of large intestine without perforation or abscess without bleeding; I11.0 Hypertensive heart disease with heart failure; I50.22 Chronic systolic (congestive) heart failure; G47.33 Obstructive sleep apnea (adult) (pediatric); Z79.01 Long term (current) use of anticoagulants; Z86.73 Personal history of transient ischemic attack (TIA), and cerebral infarction without residual deficits; Z95.5 Presence of coronary angioplasty implant and graft
CPT/HCPCS: J2704; J3010; J7120